=== PATIENT | male | born 1955 | race Caucasian/White ===

== ENCOUNTER → 2017-07-02 | Outpatient (CLI) | payer BC ==
--- NOTE | 2017-07-02 20:07 | PN ---
PROGRESS NOTE 61-year-old male patient, known history obstructive sleep apnea coming for a followup. The patient has been maintained on a BiPAP at a pressure of 13/9 cm of water. He is utilizing an older generation ResMed med unit and he has not been interested in upgrading his BiPAP machine. In fact, he has not been able to use his BiPAP knowing that he has not been able to get the right mask interface. He has been using the Marie FX mask. However he feels that the seal has not been great and the patient has been feeling uncomfortable. Recently he has been feeling more drowsy and sleepy and he is interested in going back on using his BiPAP and based on that he is coming in to find new mask interface. He is sleeping a good 6 hours. He is feeling tired and sleepy and current [place] score of 14. He is post UPPP. He is known to have obstructive sleep apnea that has been diagnosed with [facility] many years back. UPPP failed to eliminate obstructive sleep apnea and currently he has a BiPAP machine. He has other multiple medical problems, including peripheral neuropathy, Tourette's syndrome, hypertension and coronary artery disease and hyperlipidemia. MEDICATIONS: Include Zocor and metoprolol, lisinopril and aspirin. ALLERGIES: ALLERGIES ARE THE KLONOPIN AND LEVAQUIN. SOCIAL HISTORY: Nonsmoker. No alcohol. No IV drugs. REVIEW OF SYSTEMS: 12-point review of system was done. No interval history for any weight gain. He has no altered mentation. He has been a nose breather. No sinus pain. No facial pain or tenderness. No chronic rhinitis or any facial injuries. No cough or sputum production. No heartburn. No nausea, vomiting. No swelling in lower extremities. He has chronic sensory neuropathy in lower extremities bilaterally. Free of any angina. PHYSICAL EXAMINATION: BP is 130/81, pulse 68, respirations 16, temperature 98.1. Saturation 96% on room air. Weight is 244, height 5 feet 11, [place] Score is 14, BMI 34.0. General appearance is calm comfortable in no acute distress. Head is atraumatic, normocephalic. NECK: Supple. There is no JVD. No goiter or neck masses. The patient is post UPPP and the soft palate has been resected surgically. He also has absent tonsils. LUNGS: Clear to auscultation. HEART: Sounds regular rhythm. Normal S1, S2. No S3, S4. No murmurs. ABDOMEN: Soft, nontender. EXTREMITIES: No edema. No cyanosis or clubbing. NEUROLOGIC: Alert and oriented x3. There is no focal neurological deficit. Psych: Negative for anxiety or depression. IMPRESSION: 1. Obstructive sleep apnea. Currently on BiPAP at a pressure of 14/9. 2. Chronic hypersomnia [place] Score is 14. 3. Previous UPPP for obstructive sleep apnea. 4. Hyperlipidemia. 5. Hypertension. 6. Coronary artery disease. 7. Peripheral sensory neuropathy. 8. Tourette's syndrome. PLAN: The patient is not interested in undergoing a BiPAP titration for now. He is okay with using his older BiPAP unit which is an RO BiPAP ResMed unit which he owned for more than 10 years. We will offer him an AirFit P10 small-sized nose pillows. I checked his mask fit and the seal which turned out to be good. The appropriate prescription was given. He will utilize his current BiPAP machine and he may be interested in a BiPAP titration at a later stage. He will let me know accordingly. MMODL / IJN: [id number] /
== END | disposition home or self-care (01) ==
LOC: SLEEP 14:33
PROVIDERS: ATTEND Internal Medicine Critical Care Medicine
DX: G47.33 Obstructive sleep apnea (adult) (pediatric) (principal); F95.2 Tourette's disorder; G60.8 Other hereditary and idiopathic neuropathies; E78.5 Hyperlipidemia, unspecified; I10 Essential (primary) hypertension; I25.10 Atherosclerotic heart disease of native coronary artery without angina pectoris; Z79.82 Long term (current) use of aspirin; Z79.899 Other long term (current) drug therapy; Z88.0 Allergy status to penicillin; Z88.1 Allergy status to other antibiotic agents; Z99.89 Dependence on other enabling machines and devices

== ENCOUNTER → 2017-09-10 | Outpatient (CLI) | payer BC ==
[2017-09-10 10:08] LABS: Basophils # (A) 0.1 k/uL (0-0.2); Basophils % (A) 1 %; Eosinophils # (A) 0.4 k/uL (0-0.7); Eosinophils % (A) 7 %; HCT 39.5 % (39.0-53.0); HGB 13.6 gm/dL (13.0-17.5); Lymphocytes # (A) 1.4 k/uL (1.0-4.8); Lymphocytes % (A) 26 %; MCH 30.8 pg (25.0-35.0); MCHC 34.4 g/dL (31.0-37.0); MCV 89.7 fL (80.0-100.0); Mean Platelet Volume 6.5; Monocytes # (A) 0.4 k/uL (0-1.0); Monocytes % (A) 7 %; Neutrophils # (A) 3.2 k/uL (1.3-7.7); Neutrophils % (A) 58 %; Platelet Count 225 k/uL (150-450); RBC 4.41 m/uL (4.30-5.90); WBC 5.6 k/uL (3.8-10.6)
[2017-09-10 10:30] LABS: ALT 42 U/L (21-72); AST 33 U/L (17-59); Albumin 4.5 g/dL (3.5-5.0); Alkaline Phosphatase 44 U/L (38-126); Anion Gap 12 mmol/L; Blood Urea Nitrogen 12 mg/dL (9-20); Calcium 9.4 mg/dL (8.4-10.2); Carbon Dioxide 29 mmol/L (22-30); Chloride 101 mmol/L (98-107); Cholesterol 113 mg/dL (<200); Glucose 92 mg/dL (74-99); HDL Cholesterol 38 mg/dL (40-60); LDL Cholesterol,Calculated 46 mg/dL (0-99); Potassium 4.5 mmol/L (3.5-5.1); Sodium 142 mmol/L (137-145); Total Bilirubin 0.6 mg/dL (0.2-1.3); Total Protein 6.8 g/dL (6.3-8.2); Triglycerides 146 mg/dL (<150)
[2017-09-10 10:34] LABS: Appearance,Urine Clear (Clear); Bilirubin,Urine Negative (Negative); Blood,Urine Negative (Negative); Color,Urine Light Yellow; Glucose,Urine (UA) Negative (Negative); Ketones,Urine Negative (Negative); Leukocyte Esterase,Urine Negative (Negative); Nitrite,Urine Negative (Negative); Protein,Urine Negative (Negative); Specific Gravity,Urine 1.004 (1.001-1.035); Urobilinogen,Urine <2.0 mg/dL (<2.0)
[2017-09-10 10:57] LABS: Prostate Specific Antigen 0.77 ng/mL (0.00-4.00)
[2017-09-10 16:07] LABS: Vitamin D 25 Hydroxy 16.8 ng/mL (30.0-100.0)
[2017-09-10 17:10] LABS: Hepatitis C IgG Antibody Non-Reactive (Non-Reactive)
== END | disposition home or self-care (01) ==
LOC: LABWHC1 09:16
PROVIDERS: ATTEND Internal Medicine
DX: I10 Essential (primary) hypertension (principal); E55.9 Vitamin D deficiency, unspecified; R53.81 Other malaise; Z13.9 Encounter for screening, unspecified; Z12.5 Encounter for screening for malignant neoplasm of prostate
CPT/HCPCS: 36415; 80053; 80061; 81003; 82306; 82607; 84153; 84443; 85025; 86803

== ENCOUNTER → 2017-10-26 | Outpatient (CLI) | payer BC ==
--- NOTE | 2017-10-27 14:30 | MR ---
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 TECHNIQUE: Multiplanar, multiecho imaging on a 3.0 [place] magnet is performed through the brain. Stud y is performed within 24 hours of arrival to the hospital. The craniovertebral junction is normal. The pituitary is normal. Diffusion-weighted imaging is performed. No abnormal hyperintensity is present to suggest an acute i ntracranial infarct or acute ischemic change. There are a few scattered punctate subcortical and deep white matter changes not out of proportion pa tient age. These are nonspecific but could be related to chronic white matter ischemic changes. Ventricles and sulci are appropriate for the patient age. Mucosal thickening is through the ethmoid air cells and frontal sinuses. Correlate for acute sinusiti s. IMPRESSIONS: 1. Few nonspecific right side white matter changes. These are increasing from 2009 comparison.
== END | disposition home or self-care (01) ==
LOC: RADMRIMAIN 09:22
PROVIDERS: ATTEND Psychiatry & Neurology Neurology
DX: R90.82 White matter disease, unspecified (principal)
CPT/HCPCS: 70551

== ENCOUNTER → 2018-12-08 | Outpatient (CLI) | payer BC ==
--- NOTE | 2018-12-08 08:50 | CT ---
EXAMINATION TYPE: CT sinus wo con DATE OF EXAM: 12/08/2018 COMPARISON: MRI brain October 26, 2017. HISTORY: Dizziness and headaches per patient. Chronic sinusitis prior. CT DLP: 556.90 mGycm. Automated Exposure Control for Dose Reduction was Utilized. TECHNIQUE: CT scan of the sinuses is performed without contrast, axial images are obtained, coronal r eformatted images are also reviewed. FINDINGS: There is moderate to severe mucosal thickening and patchy opacification throughout the ethm oid sinuses bilaterally. There is mild to moderate mucosal thickening involving the sphenoid sinuses bilaterally. There is moderate mucosal thickening inferior aspect bilateral frontal sinuses. The ost iomeatal complex is patent bilaterally on the coronal images. Visualized portion of mastoid air cells show no abnormal opacification. Patchy soft tissue density bi lateral left auditory canals is felt to reflect cerumen. The globes are intact bilaterally. Visualiz ed portion of brain parenchyma shows mild to moderate diffuse age related cerebral atrophy. IMPRESSION: Acute on chronic ethmoid sinus disease. Additional chronic paranasal sinus disease bilate rally as detailed above.
== END | disposition home or self-care (01) ==
LOC: RADCTMAIN 08:15
PROVIDERS: ATTEND Otolaryngology
DX: J32.2 Chronic ethmoidal sinusitis (principal)
CPT/HCPCS: 70486

== ENCOUNTER → 2018-12-24 | Outpatient (CLI) | payer BC ==
--- NOTE | 2018-12-24 20:35 | PN ---
PROGRESS NOTE DATE OF SERVICE: 12/24/2018 63-year-old gentleman who has [facility] for treatment of obstructive sleep apnea-hypopnea syndrome. Previously, patient was treated with Auto Serve ventilator and BiPAP. Recently he is on treatment with CPAP. His BiPAP Auto Serve ventilator unit is very old, but patient continued to use his equipment every night for the whole night. Last sleep study that he had in 2014 and since that time, it was recommended to use BiPAP. [place] Sleepiness Scale today is 10. MEDICATIONS: Metoprolol, baby aspirin, lisinopril, simvastatin, Singulair, Wellbutrin. PHYSICAL EXAM: Patient in no distress. BP 157/81, HR 63, RR 16, height 5 feet 11 inches, weight 242.8. Body mass index 33.8, temperature 98.4, oxygen saturation at room air 95% on 2 L. Oropharynx low position of soft palate. Mallampati 4. Wide neck is 17-3/4 inches in circumference. Neck Supple, no JVD. Thyroid is not palpable. LUNGS Clear to percussion and to auscultation. Good air exchange. No wheezing or rhonchi. HEART S1, S2 regular. No murmurs, gallops, or rubs. ABDOMEN: Slightly obese. Soft and nontender. Bowel sounds are present. No organomegaly appreciated. EXTREMITIES No clubbing or cyanosis. 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 Cranial nerves 2 to 7 intact. There is no fasciculation or atrophy. noted. No focal deficits observed. IMPRESSION: 1. Obstructive sleep apnea-hypopnea syndrome. The patient continued to use his CPAP equipment every night for the whole night. BIPAP equipment is old. 2. Hypertension. 3. Status post uvulopalatopharyngoplasty. 4. Hyperlipidemia. 5. Coronary artery disease. 6. Peripheral neuropathy. 7. History of Tourette's syndrome. PLAN: 1. Prescription for new BiPAP unit with a pressure of 13/9 cm of water. 2. Patient should continue to use his BiPAP equipment every night for the whole night. 3. Watching and losing weight. 4. Sleep hygiene with regular time in bed for at least 7.5 to 8 hours. 5. No driving if feeling sleepiness. 6. Follow-up visit in 1 month after patient will get new BiPAP unit. Sincerely, Jae Asencio, MD, PhD, FAASM Diplomat of [place] [employer] [place] [employer] [facility] Administrator of [facility] [place] MMALBERTO / PRAVEENA: [id number] /
== END ==
LOC: SLEEP 15:53
PROVIDERS: ATTEND Internal Medicine
DX: G47.33 Obstructive sleep apnea (adult) (pediatric) (principal); I10 Essential (primary) hypertension; E78.5 Hyperlipidemia, unspecified; I25.10 Atherosclerotic heart disease of native coronary artery without angina pectoris; G62.9 Polyneuropathy, unspecified; Z86.69 Personal history of other diseases of the nervous system and sense organs; Z99.89 Dependence on other enabling machines and devices; Z98.890 Other specified postprocedural states; Z79.899 Other long term (current) drug therapy; Z79.82 Long term (current) use of aspirin

== ENCOUNTER 2019-02-11 10:45 | Day surgery (SDC) | payer BC ==
[2019-02-10 10:08] VITALS: BMI 32.8
--- NOTE | 2019-02-11 08:33 | P.GSHP ---
History of Present Illness H&P Date: 02/11/19 CHIEF COMPLAINT: Colon screen HISTORY OF PRESENT ILLNESS: The patient is a 63-year-old male who presents for colon screen. Lower endoscopy was offered for further evaluation and management. PAST MEDICAL HISTORY: Please see list. PAST SURGICAL HISTORY: Please see list. MEDICATIONS: Please see list. ALLERGIES: Please see list. SOCIAL HISTORY: No illicit drug use FAMILY HISTORY: No reports of Crohn disease or ulcerative colitis. REVIEW OF ORGAN SYSTEMS: CONSTITUTIONAL: No reports of fevers or chills. PHYSICAL EXAM: VITAL SIGNS: Stable GENERAL: Well-developed pleasant in no acute distress. HEENT: No scleral icterus. Extraocular movements grossly intact. Moist buccal mucosa. NECK: Supple without lymphadenopathy. CHEST: Unlabored respirations. Equal bilateral excursions. CARDIOVASCULAR: Regular rate and rhythm. Distal 2+ pulses. ABDOMEN: Soft, nontender, nondistended. MUSCULOSKELETAL: No clubbing, cyanosis, or edema. ASSESSMENT: 1. Colon screen. PLAN: 1. 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", constipation, rectal pain with occ bleeding with bowel movements- change in bowel movements, recent "prostate infection" Last Myocardial Infarction Date:: unknown History of Any Multi-Drug Resistant Organisms: None Reported Past Surgical History: Heart Catheterization With Stent, Orthopedic Surgery, Tonsillectomy Additional Past Surgical History / Comment(s): ORAL SURGERY, SINUS SURGERY, heart stents x 5, reconstruction surgery rt hand x 6, uvuloplasty, hemorrhoidectomy Past Anesthesia/Blood Transfusion Reactions: Postoperative Nausea & Vomiting (PONV) Additional Past Anesthesia/Blood Transfusion Reaction / Comment(s): could not walk for a couple hours after surgery with one surgery in 1990- (came in for surgery running a fever) Date of Last Stent Placement:: 08-03-13 Smoking Status: Never smoker - Past Family History Mother Family Medical History: Cancer Additional Family Medical History / Comment(s): colon and breast CA Medications and Allergies Home Medications Medication Instructions Recorded Confirmed Type Simvastatin [Zocor] 40 mg PO HS #60 tab 08/04/13 02/10/19 Rx Lisinopril [Zestril] 2.5 mg PO HS 12/01/18 02/10/19 History Metoprolol Tartrate [Lopressor] 12.5 mg PO QAM 12/01/18 02/10/19 History buPROPion HCL [buPROPion HCL SR] 150 mg PO BID 12/01/18 02/10/19 History Albuterol Inhaler [Ventolin Hfa 1 - 2 puff INHALATION BID PRN 02/10/19 02/10/19 History Inhaler] Aspirin [Adult Low Dose Aspirin EC] 162 mg PO DAILY 02/10/19 02/10/19 History Fluticasone/Vilanterol [Breo 1 inhalation INHALATION QAM 02/10/19 02/10/19 History Ellipta 200-25 Mcg INH] Montelukast Sodium [Singulair] 10 mg PO HS 02/10/19 02/10/19 History Allergies Allergy/AdvReac Type Severity Reaction Status Date / Time clonidine Allergy "ALMOST Verified 02/10/19 09:49 STOPPED MY HEART" levofloxacin [From Levaquin] Allergy SEIZURE Verified 02/10/19 09:49
[~2019-02-11 10:45] MED LIST: LIDOCAINE 1% 20 ML VIAL (10MG/ML) FOR IV START INTRADERMA PRN
[2019-02-11 11:54] VITALS: RESP 16; TEMP 97.9
[2019-02-11] MEDS: LACTATED RINGERS 1,000 ML IV SCH ×2 (11:54→12:28)
[2019-02-11] MEDS ORDERED: PROPOFOL 10 MG/ML 20 ML VIAL IV ONE (12:28)
--- NOTE | 2019-02-11 13:08 | P.PCN ---
Date of Procedure: 02/11/19 Description of Procedure: PREOPERATIVE DIAGNOSIS: Personal history of colon polyps. Family history of colon cancer, parents Colonoscopy screening POSTOPERATIVE DIAGNOSIS: Personal history of colon polyps. Family history of colon cancer, parents Colonoscopy screening Mid transverse colon adenoma OPERATION: Colonoscopy to the ileocecal valve and appendiceal orifice. Colonoscopy with multiple cold forceps biopsies. SURGEON: Kayla Greene MD. ANESTHESIA: MAC. INDICATIONS: The patient is a 63-year-old female who presents for colonoscopy screening. Last colonoscopy 5 years ago. Benefits and risks were described and informed consent was obtained. DESCRIPTION OF PROCEDURE: The patient had undergone Suprep. He had been brought into the operating room and laid in the left lateral decubitus position. After adequate intravenous sedation, the rectum was examined with 2% lidocaine jelly. No external hemorrhoids were encountered. The rectal tone was within normal limits. No lesions were palpated in the rectal vault. An Olympus colonoscope was advanced until the ileocecal valve and appendiceal orifice were clearly viewed. The prep was fair with visualization of the mucosal folds. The scope was removed with visualization of each mucosal fold. No scattered diverticulosis was encountere d. Mid transverse colon polyp was treated with snare polypectomy. No evidence of focal colitis was found. Retroflexion of the scope demonstrated grade 1 internal hemorrhoids without active bleeding or inflammation. The colon was desufflated. The patient had tolerated the procedure well. Withdrawal time was over 6 minutes. FINDINGS: Aronchick preparation quality scale 1 (1-5) Internal hemorrhoids, grade 1 No external hemorrhoids No arteriovenous malformations Highly redundant sigmoid colon No scattered diverticulosis Removal of 1 polyp: - Snare polypectomy mid transverse colon, 5 mm tubulovillous adenoma polyp. No focal colitis. RECOMMENDATIONS: Repeat colonoscopy 3 years, 2021 for high risk family and personal history Plan - Discharge Summary Discharge Rx Participant: No New Discharge Prescriptions: No Action Simvastatin [Zocor] 40 mg PO HS #60 tab Metoprolol Tartrate [Lopressor] 12.5 mg PO QAM Lisinopril [Zestril] 2.5 mg PO HS buPROPion HCL [buPROPion HCL SR] 150 mg PO BID Albuterol Inhaler [Ventolin Hfa Inhaler] 1 - 2 puff INHALATION BID PRN PRN Reason: sob Aspirin [Adult Low Dose Aspirin EC] 162 mg PO DAILY Fluticasone/Vilanterol [Breo Ellipta 200-25 Mcg INH] 1 inhalation INHALATION QAM Montelukast Sodium [Singulair] 10 mg PO HS Discharge Medication List Simvastatin [Zocor] 40 mg PO HS #60 tab 08/04/13 [Rx] Lisinopril [Zestril] 2.5 mg PO HS 12/01/18 [History] Metoprolol Tartrate [Lopressor] 12.5 mg PO QAM 12/01/18 [History] buPROPion HCL [buPROPion HCL SR] 150 mg PO BID 12/01/18 [History] Albuterol Inhaler [Ventolin Hfa Inhaler] 1 - 2 puff INHALATION BID PRN 02/10/19 [History] Aspirin [Adult Low Dose Aspirin EC] 162 mg PO DAILY 02/10/19 [History] Fluticasone/Vilanterol [Breo Ellipta 200-25 Mcg INH] 1 inhalation INHALATION QAM 02/10/19 [History] Montelukast Sodium [Singulair] 10 mg PO HS 02/10/19 [History] Follow up Appointment(s)/Referral(s): Kayla Greene MD [STAFF PHYSICIAN] - As Needed Patient Instructions/Handouts: *Surgery [facility] - (Anesthesia) Endoscopy Discharge Instructions, Colorectal Polyps (DC), Colonoscopy (DC) Discharge Disposition: HOME SELF-CARE
[2019-02-11 13:10] VITALS: BP 101/69; PULSE 50
== END 2019-02-11 13:30 | disposition home or self-care (01) ==
LOC: ORWHC2ENDO 10:45
PROVIDERS: ATTEND Surgery Plastic and Reconstructive Surgery
DX: Z12.11 Encounter for screening for malignant neoplasm of colon (principal); K63.5 Polyp of colon; Q43.8 Other specified congenital malformations of intestine; K64.0 First degree hemorrhoids; Z86.010 Personal history of colon polyps; Z80.0 Family history of malignant neoplasm of digestive organs; J45.909 Unspecified asthma, uncomplicated; K21.9 Gastro-esophageal reflux disease without esophagitis; E78.5 Hyperlipidemia, unspecified; N41.9 Inflammatory disease of prostate, unspecified; I10 Essential (primary) hypertension; I25.2 Old myocardial infarction; M19.90 Unspecified osteoarthritis, unspecified site; Z87.01 Personal history of pneumonia (recurrent); G47.33 Obstructive sleep apnea (adult) (pediatric); Z99.89 Dependence on other enabling machines and devices; G62.9 Polyneuropathy, unspecified; R27.8 Other lack of coordination; F95.2 Tourette's disorder; Z86.73 Personal history of transient ischemic attack (TIA), and cerebral infarction without residual deficits; R00.2 Palpitations; I25.10 Atherosclerotic heart disease of native coronary artery without angina pectoris; Z95.5 Presence of coronary angioplasty implant and graft; Z80.3 Family history of malignant neoplasm of breast; Z79.82 Long term (current) use of aspirin; Z79.51 Long term (current) use of inhaled steroids; Z79.899 Other long term (current) drug therapy; Z88.1 Allergy status to other antibiotic agents; Z88.8 Allergy status to other drugs, medicaments and biological substances
CPT/HCPCS: 88305; 45385; J2704

== ENCOUNTER 2020-12-01 05:58 | Day surgery (SDC) | payer BC ==
[2020-11-23 16:22] VITALS: BMI 31.9
--- NOTE | 2020-11-30 19:38 | HP ---
HISTORY AND PHYSICAL DATE OF SURGERY: 12/01/2020 Barrington De Dios is a 65-year-old gentleman seen with progressive left shoulder pain. We discussed options for treatment. He elected to proceed with arthroscopy. Consent was obtained. Clearance was provided by Dr. Nolen. PAST MEDICAL HISTORY: Hypertension, hyperlipidemia, gastroesophageal reflux disease. PAST SURGICAL HISTORY: Hand surgery, sinus surgery. DAILY MEDICATIONS: Aspirin, lisinopril, metoprolol, omeprazole, simvastatin. ALLERGIES: LEVAQUIN AND CLONIDINE. SOCIAL HISTORY: He denies tobacco use. PHYSICAL EVALUATION OF THE LEFT SHOULDER: Flexion 100, abduction 90. External rotation is 10 with pain and weakness. Tenderness along the anterolateral acromion and acromioclavicular joint as well as rotator cuff insertion site. Impingement is positive at 90 degrees. Drop-arm sign is positive. Cross-body adduction sign is positive. Distal neurovascular exam is intact. RADIOGRAPHS: Radiographs of the left shoulder revealed a type 2 acromion and evidence for acromioclavicular joint osteoarthritis and cystic changes of the tuberosity. An MRI of the left shoulder revealed impingement, acromioclavicular joint osteoarthritis as well as some glenohumeral joint osteoarthritis. IMPRESSION: 1. Left shoulder impingement with possible rotator cuff tear. 2. Left shoulder acromioclavicular joint osteoarthritis. 3. Left shoulder glenohumeral joint osteoarthritis. 4. Hypertension. 5. Hyperlipidemia. 6. Gastroesophageal reflux disease. PLAN: Left shoulder arthroscopy with subacromial decompression, arthroscopic Shirley procedure, possible rotator cuff repair and debridement. MMODL / IJN: [id number] /
[~2020-12-01 05:58] MED LIST changes: +DEXAMETHASONE SOD PHOSPHATE 4 MG/ML 1 ML VIAL IV ONE; +LACTATED RINGERS 1,000 ML IV SCH; -LIDOCAINE 1% 20 ML VIAL (10MG/ML) FOR IV START INTRADERMA PRN; +MIDAZOLAM 2 MG/2 ML VIAL IV PRN; +ONDANSETRON 4 MG/2 ML VIAL IVP ONE
[2020-12-01] MEDS ORDERED: LIDOCAINE 1% (10MG/ML) FOR IV START INTRADERMA ONE (06:30)
[2020-12-01 06:56] VITALS: RESP 16
[2020-12-01] MEDS ORDERED: HYDROmorphone 0.5 MG/0.5 ML SYRINGE IVP PRN (07:00)
[2020-12-01] MEDS ORDERED: fentaNYL (PF) 50 MCG/ML 2 ML AMP ONE (07:25)
[2020-12-01] MEDS ORDERED: ROCURONIUM 10 MG/ML (5 ML VIAL) IV ONE (07:25)
[2020-12-01] MEDS ORDERED: ROPIVACAINE 5 MG/ML 30 ML VIAL ONE (07:25)
[2020-12-01] MEDS ORDERED: DEXAMETHASONE SOD PHOSPHATE 4 MG/ML 1 ML VIAL ONE (07:25)
[2020-12-01] MEDS ORDERED: LIDOCAINE 1% INJ 10MG/ML (20 ML MDV) ONE (07:25)
[2020-12-01] MEDS ORDERED: GLYCOPYRROLATE 0.2 MG/ML 2 ML VIAL ONE (07:25)
[2020-12-01] MEDS ORDERED: SUCCINYLCHOLINE CHLORIDE 100 MG/5 ML SYR IV ONE (07:25)
[2020-12-01] MEDS ORDERED: NEOSTIGMINE 1 MG/ML 10 ML VIAL ONE (07:25)
[2020-12-01] MEDS ORDERED: PROPOFOL 10 MG/ML 20 ML VIAL IV ONE (07:25)
--- NOTE | 2020-12-01 09:03 | P.OP ---
Date of Procedure: 12/01/20 Preoperative Diagnosis: Left shoulder impingement Postoperative Diagnosis: 1. Left shoulder rotator cuff tear 2. Left shoulder impingement 3. Left shoulder acromioclavicular joint osteoarthritis 4. Left shoulder partial long head biceps tendon tear 5. 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 Left shoulder loose bodies 2 Procedure(s) Performed: 1. Left shoulder arthroscopic rotator cuff repair 2. Left shoulder arthroscopic subacromial decompression 3. Left shoulder arthroscopic Shirley procedure 4. Left shoulder arthroscopic biceps tenotomy 5. Left shoulder arthroscopic chondroplasty humeral head 6. Left shoulder removal loose bodies 2 Implants: 15.5 Arthrex swivel lock anchor Anesthesia: GETA, regional (Interscalene block) Surgeon: Clinton Ledezma Dinkey Operator Slag #1: Anthony Shay Estimated Blood Loss (ml): 11 Pathology: none sent Condition: stable Disposition: PACU Indications for Procedure: 65-year-old patient seen with progressive left shoulder pain. After having treatment options discussed, he elected to proceed with arthroscopy. Operative Findings: See description of procedure Description of Procedure: Patient underwent an interscalene block by department of anesthesia. The patient was then taken to the operative suite. The patient underwent a general anesthetic by the department of anesthesia. The patient was placed into a lateral position and secured. There was appropriate padding of the bony prominence. Left shoulder was then prepped and draped in normal sterile orthopedic fashion. We placed the extremity in 10 pounds of longitudinal traction. A posterior incision was now made for a posterior working portal site. The trocar and cannula were inserted into the glenohumeral joint. Arthroscopy was initiated. Spinal needle was now inserted anteriorly, to ascertain the anterior working portal site. An incision was now made in that area, a trocar was inserted followed by a probe. There was partial tearing and hyperemia long head biceps tendon. There was an area of grade 2/3 chondral malacia humeral head with osteochondral flap tears. There was some superficial fraying of the superior and anterior labrum. There were grade 2, she changes glenoid fossa anteriorly. I noted to loose bodies intra-articular. At this point I removed those with loose body pituitaries without difficulty. I now performed an arthroscopic biceps tenotomy. I now performed a chondroplasty of the humeral head getting down to stable osteochondral tissue. I now debrided out the superficial fraying of the labrum. The residual osteochondral surface was probed and found to be stable. I again noted grade 2/3 chondromalacia there. The residual labrum was stable. At this point instruments removed from glenohumeral joint. Utilizing the posterior working portal site, the trocar and cannula were inserted into the subacromial space. Arthroscopy initiated. I made an incision 2 fingerbreadths lateral to the acromion. I introduced my trocar followed by my ArthroCare ablator. I now began ablating thick subacromial bursal tissue, which exposed the undersurface of the anterior acromion. There was diminished subacromial space. There was a very prominent anterior acromion. A motorized bur was introduced and a subacromial decompression was performed. I also excised some osteophytes off the inferior aspect of the distal clavicle. The AC joint was visualized and noted to be fairly arthritic. The motorized bur was introduced in the anterior portal site and a Shirley procedure was performed without difficulty, decompressing the AC joint nicely. I turned my attention to the rotator cuff. There was significant partial tearing distal supraspinatus. Upon probing the area and noted a full-thickness perforation. I debrided the margins getting down to stable tendon tissue. I abraded the footprint with a motorized bur. With the assistance of Ronaldo WILDE I passed 2 everted mattress sutures through good bites of rotator cuff tendon. I now punched along the footprint for insertion of an anchor. All 4 limbs of suture were passed through the eyelet of a 5.5 Arthrex swivel lock anchor. I placed the pre-punch hole. I felt that in position while Ronaldo WILDE tension on the sutures and deployed anchor with good fixation noted. All residual suture limbs were now clipped. We had good compression of the tendon along the entire footprint. Instruments now removed from the portal sites. All portal sites were approximated with nylon suture. Sterile dressings were applied followed by a shoulder sling. Anthony WILDE assisted in this case. The patient was awakened, transferred to a bed, and taken to recovery in stable condition.
[2020-12-01] MEDS ORDERED: ONDANSETRON 4 MG/2 ML VIAL ONE (09:23)
[2020-12-01 09:27] VITALS: TEMP 97.3
[2020-12-01] MEDS ORDERED: ONDANSETRON 4 MG/2 ML VIAL IVP ONE (09:28)
[2020-12-01] MEDS ORDERED: LACTATED RINGERS 1,000 ML IV ONE (09:32)
[2020-12-01] MEDS ORDERED: HYDROcodone/APAP 5-325MG 1 EACH TAB ONE (10:21)
[2020-12-01] MEDS ORDERED: HYDROcodone/APAP 5-325MG 1 EACH TAB PO ONE (10:25)
[2020-12-01 10:57] VITALS: BP 146/88; PULSE 58
--- NOTE | 2020-12-02 07:23 | P.ANPRN ---
Procedure Note - Anesthesia - Nerve Block Performed Left Interscalene Single Time Out Performed: Yes Date of Procedure: 12/01/20 Procedure Start Time: 06:48 Procedure Stop Time: 06:53 Location of Patient: PreOp Indication: Acute Post-Operative Pain, Requested by Surgeon Sedation Type: Sedate with meaningful contact maintained Preparation: Sterile Prep Position: Supine Needle Types: Pajunk Needle Gauge: 21 Ultrasound used to visualize needle placement: Yes Ultrasound used to observe medication spread: Yes Blood Aspirated: No Pain Paresthesia on Injection Noted: No Resistance on Injection: Normal Image Stored and Saved: Yes Events: Uneventful and Well Tolerated (rop[i .5% 25 cc plus dexamethasone 4mg)
== END 2020-12-01 11:22 | disposition home or self-care (01) ==
LOC: OR 05:58
PROVIDERS: ATTEND Orthopaedic Surgery
DX: M75.102 Unspecified rotator cuff tear or rupture of left shoulder, not specified as traumatic (principal); M19.012 Primary osteoarthritis, left shoulder; E78.5 Hyperlipidemia, unspecified; I10 Essential (primary) hypertension; K21.9 Gastro-esophageal reflux disease without esophagitis; Z88.1 Allergy status to other antibiotic agents
CPT/HCPCS: 29827; 29824; 29826; 29828; 64415; 76942; C1713; J2250; J1100; J2710; J0690; J2405; J2001; J3010; J2795; J0330; J2704

== ENCOUNTER → 2021-04-08 | Outpatient (CLI) | payer BC ==
[2021-04-08 18:37] LABS: HCT 39.2 % (39.6-50.0); HGB 13.6 g/dL (13.0-17.0); MCH 31.3 pg (27.0-32.0); MCHC 34.7 g/dL (32.0-37.0); MCV 90.3 fL (80.0-97.0); Platelet Count 268 X 10*3/uL (140-440); RBC 4.34 X 10*6/uL (4.40-5.60); RDW 11.8 % (11.5-14.5); WBC 5.75 X 10*3/uL (4.50-10.00)
[2021-04-08 23:54] LABS: ALT 28 U/L (10-49); AST 25 U/L (14-35); African American GFR (CKD) 111.6 (60.0-200.0); Albumin 4.8 g/dL (3.8-4.9); Albumin/Globulin Ratio 2.58 (1.60-3.17); Alkaline Phosphatase 70 U/L (41-126); BUN/Creat Ratio 15.85 Ratio (12.00-20.00); Blood Urea Nitrogen 12.3 mg/dL (9.0-27.0); Calcium 9.5 mg/dL (8.7-10.3); Carbon Dioxide 21.5 mmol/L (20.0-27.5); Chloride 96 mmol/L (96-109); Chol/HDL Ratio 2.47 Ratio; Globulin 1.9 g/dL (1.6-3.3); Glucose 95 mg/dL (70-110); LDL Cholesterol,Calculated 51.9 mg/dL (0.0-131.0); Non-African American GFR(CKD) 96.3 (60.0-200.0); Potassium 4.1 mmol/L (3.5-5.5); Sodium 133 mmol/L (135-145); Total Protein 6.7 g/dL (6.2-8.2); VLDL Calculation 15.26 mg/dL (5.00-40.00)
== END | disposition home or self-care (01) ==
LOC: LABWHC1 10:09
PROVIDERS: ATTEND Family Medicine
DX: Z00.01 Encounter for general adult medical examination with abnormal findings (principal); Z12.5 Encounter for screening for malignant neoplasm of prostate
CPT/HCPCS: 80061; 80053; 85027; 36415; G0103

== ENCOUNTER 2022-01-15 10:35 | Emergency (ER) | payer BC ==
[2022-01-15 11:06] LABS: Basophils # (A) 0.1 k/uL (0-0.2); Basophils % (A) 1 %; Eosinophils # (A) 0.2 k/uL (0-0.7); Eosinophils % (A) 2 %; HCT 40.1 % (39.0-53.0); HGB 14.3 gm/dL (13.0-17.5); Lymphocytes # (A) 1.7 k/uL (1.0-4.8); Lymphocytes % (A) 15 %; MCH 32.3 pg (25.0-35.0); MCHC 35.8 g/dL (31.0-37.0); MCV 90.2 fL (80.0-100.0); Mean Platelet Volume 7.2; Monocytes # (A) 0.7 k/uL (0-1.0); Monocytes % (A) 6 %; Neutrophils # (A) 8.5 k/uL (1.3-7.7); Neutrophils % (A) 76 %; Platelet Count 259 k/uL (150-450); RBC 4.44 m/uL (4.30-5.90); RDW 11.9 % (11.5-15.5); WBC 11.3 k/uL (3.8-10.6)
[2022-01-15 11:18] LABS: ALT 28 U/L (4-49); AST 28 U/L (17-59); African American GFR (CKD) >90 (>60 ml/min/1.73 sqM); Albumin 4.5 g/dL (3.5-5.0); Alkaline Phosphatase 70 U/L (38-126); Anion Gap 11 mmol/L; Blood Urea Nitrogen 8 mg/dL (9-20); Calcium 8.7 mg/dL (8.4-10.2); Carbon Dioxide 24 mmol/L (22-30); Chloride 101 mmol/L (98-107); Glucose 91 mg/dL (74-99); Non-African American GFR(CKD) >90 (>60 ml/min/1.73 sqM); Potassium 3.8 mmol/L (3.5-5.1); Sodium 136 mmol/L (137-145); Total Bilirubin 1.1 mg/dL (0.2-1.3); Total Protein 6.6 g/dL (6.3-8.2)
[2022-01-15 11:20] LABS: Partial Thromboplastin Time 22.8 sec (22.0-30.0); Prothrombin Time 10.7 sec (9.0-12.0)
--- NOTE | 2022-01-15 12:31 | ED ---
General Adult HPI - General Chief complaint: GI Bleed Stated complaint: Blood in stool Time Seen by Provider: 01/15/22 12:17 Source: patient, RN notes reviewed, old records reviewed Mode of arrival: ambulatory Limitations: no limitations - History of Present Illness Initial comments: 66-year-old male presenting for evaluation of rectal bleeding. Patient has had multiple episodes over the past 48 hours of bright red rectal bleeding with several clots. He states he's scheduled for colonoscopy in about a month. The patient is currently taking too 81 mg aspirin daily, no other antiplatelet or anticoagulation. He has had some crampy abdominal pain. He also states he has lost about 20 pounds and has had early satiety. - Related Data Home Medications Medication Instructions Recorded Confirmed lisinopriL [Zestril] 5 mg PO HS 12/01/18 01/15/22 Albuterol Inhaler [Ventolin Hfa 1 - 2 puff INHALATION RT-Q6H PRN 02/10/19 01/15/22 Inhaler] Aspirin [Adult Low Dose Aspirin EC] 162 mg PO DAILY 02/10/19 01/15/22 Montelukast Sodium [Singulair] 10 mg PO HS 02/10/19 01/15/22 Multivit-Min/FA/Lycopen/Lutein 1 tab PO DAILY 11/23/20 01/15/22 [Centrum Silver Tablet] FLUoxetine HCL 20 mg PO DAILY 01/15/22 01/15/22 Glucos Sul 2Kcl/MSM/Chond/C/Mn 1 cap PO DAILY 01/15/22 01/15/22 [Glucosamine Chondroitin Cap] Metoprolol Succinate [Metoprolol 25 mg PO DAILY 01/15/22 01/15/22 Succinate ER] Zinc Gluconate [Zinc] 50 mg PO DAILY 01/15/22 01/15/22 buPROPion XL [Wellbutrin XL] 300 mg PO DAILY 01/15/22 01/15/22 Previous Rx's Medication Instructions Recorded Simvastatin [Zocor] 40 mg PO HS #60 tab 08/04/13 Sulfamethox-Tmp 800-160Mg [Bactrim 1 tab PO Q12HR 7 Days #14 tab 01/15/22 DS 800-160 mg] Allergies Allergy/AdvReac Type Severity Reaction Status Date / Time clonidine Allergy "ALMOST Verified 01/15/22 13:48 STOPPED MY HEART" levofloxacin [From Levaquin] Allergy SEIZURE Verified 01/15/22 13:48 Review of Systems ROS Statement: Those systems with pertinent positive or pertinent negative responses have been documented in the HPI. ROS Other: All systems not noted in ROS Statement are negative. 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 Past Anesthesia/Blood Transfusion Reactions: Postoperative Nausea & Vomiting (PONV) Additional Past Anesthesia/Blood Transfusion Reaction / Comment(s): could not walk for a couple hours after surgery with one surgery in 1990- (came in for surgery running a fever) Date of Last Stent Placement:: 08-03-13 Past Psychological History: Anxiety, Depression Smoking Status: Never smoker Past Alcohol Use History: None Reported Past Drug Use History: None Reported - Past Family History Mother Family Medical History: Cancer Additional Family Medical History / Comment(s): colon and breast CA General Exam Limitations: no limitations General appearance: alert, in no apparent distress Head exam: Present: atraumatic, normocephalic Eye exam: Present: normal appearance, PERRL ENT exam: Present: normal exam Neck exam: Present: normal inspection. Absent: tenderness, meningismus Respiratory exam: Present: normal lung sounds bilaterally. Absent: respiratory distress, wheezes Cardiovascular Exam: Present: regular rate, normal rhythm GI/Abdominal exam: Present: soft. Absent: distended, tenderness, guarding, rebound Extremities exam: Present: normal inspection, normal capillary refill. Absent: pedal edema Neurological exam: Present: alert, oriented X3, CN II-XII intact. Absent: motor sensory deficit Psychiatric exam: Present: normal affect, normal mood Skin exam: Present: warm, dry, intact. Absent: cyanosis, diaphoretic Course Vital Signs 01/15/22 01/15/22 10:47 12:51 Temperature 98.4 F Pulse Rate 74 78 Respiratory 20 18 Rate Blood Pressure 118/80 122/81 O2 Sat by Pulse 99 97 Oximetry Medical Decision Making - Medical Decision Making 66-year-old male with abdominal pain and rectal bleeding. Patient's well- appearing, stable vitals. Laboratory tests reveal stable hemoglobin, no significant abnormalities in lab testing. Imaging does reveal a distal colitis likely the cause of the patient's rectal bleeding. I discussed case with Dr. Moise who is familiar with the patient, will start antibiotics at this time with close outpatient follow-up. The patient's given strict return parameters. - Lab Data Result diagrams: 01/15/22 10:49 01/15/22 10:49 Lab Results 01/15/22 01/15/22 01/15/22 Range/Units 10:49 10:49 10:49 WBC 11.3 H (3.8-10.6) k/uL RBC 4.44 (4.30-5.90) m/uL Hgb 14.3 (13.0-17.5) gm/dL Hct 40.1 (39.0-53.0) % MCV 90.2 (80.0-100.0) fL MCH 32.3 (25.0-35.0) pg MCHC 35.8 (31.0-37.0) g/dL RDW 11.9 (11.5-15.5) % Plt Count 259 (150-450) k/uL MPV 7.2 Neutrophils % 76 % Lymphocytes % 15 % Monocytes % 6 % Eosinophils % 2 % Basophils % 1 % Neutrophils # 8.5 H (1.3-7.7) k/uL Lymphocytes # 1.7 (1.0-4.8) k/uL Monocytes # 0.7 (0-1.0) k/uL Eosinophils # 0.2 (0-0.7) k/uL Basophils # 0.1 (0-0.2) k/uL PT 10.7 (9.0-12.0) sec INR 1.0 (<1.2) APTT 22.8 (22.0-30.0) sec Sodium 136 L (137-145) mmol/L Potassium 3.8 (3.5-5.1) mmol/L Chloride 101 (98-107) mmol/L Carbon Dioxide 24 (22-30) mmol/L Anion Gap 11 mmol/L BUN 8 L (9-20) mg/dL Creatinine 0.68 (0.66-1.25) mg/dL Est GFR (CKD-EPI)AfAm >90 (>60 ml/min/1.73 sqM) Est GFR (CKD-EPI)NonAf >90 (>60 ml/min/1.73 sqM) Glucose 91 (74-99) mg/dL Calcium 8.7 (8.4-10.2) mg/dL Total Bilirubin 1.1 (0.2-1.3) mg/dL AST 28 (17-59) U/L ALT 28 (4-49) U/L Alkaline Phosphatase 70 (38-126) U/L Troponin I (0.000-0.034) ng/mL Total Protein 6.6 (6.3-8.2) g/dL Albumin 4.5 (3.5-5.0) g/dL 01/15/22 Range/Units 10:49 WBC (3.8-10.6) k/uL RBC (4.30-5.90) m/uL Hgb (13.0-17.5) gm/dL Hct (39.0-53.0) % MCV (80.0-100.0) fL MCH (25.0-35.0) pg MCHC (31.0-37.0) g/dL RDW (11.5-15.5) % Plt Count (150-450) k/uL MPV Neutrophils % % Lymphocytes % % Monocytes % % Eosinophils % % Basophils % % Neutrophils # (1.3-7.7) k/uL Lymphocytes # (1.0-4.8) k/uL Monocytes # (0-1.0) k/uL Eosinophils # (0-0.7) k/uL Basophils # (0-0.2) k/uL PT (9.0-12.0) sec INR (<1.2) APTT (22.0-30.0) sec Sodium (137-145) mmol/L Potassium (3.5-5.1) mmol/L Chloride (98-107) mmol/L Carbon Dioxide (22-30) mmol/L Anion Gap mmol/L BUN (9-20) mg/dL Creatinine (0.66-1.25) mg/dL Est GFR (CKD-EPI)AfAm (>60 ml/min/1.73 sqM) Est GFR (CKD-EPI)NonAf (>60 ml/min/1.73 sqM) Glucose (74-99) mg/dL Calcium (8.4-10.2) mg/dL Total Bilirubin (0.2-1.3) mg/dL AST (17-59) U/L ALT (4-49) U/L Alkaline Phosphatase (38-126) U/L Troponin I <0.012 (0.000-0.034) ng/mL Total Protein (6.3-8.2) g/dL Albumin (3.5-5.0) g/dL Disposition Clinical Impression: Colitis Disposition: HOME SELF-CARE Condition: Fair Instructions (If sedation given, give patient instructions): Gastrointestinal Bleeding (ED), Colitis (ED) Prescriptions: Sulfamethox-Tmp 800-160Mg [Bactrim DS 800-160 mg] 1 tab PO Q12HR 7 Days #14 tab Is patient prescribed a controlled substance at d/c from ED?: No Referrals: Marcos Wright MD [Primary Care Provider] - 1-2 days Kayla Greene MD [STAFF PHYSICIAN] - 1-2 days Time of Disposition: 14:14
[2022-01-15 12:55] VITALS: RESP 18
--- NOTE | 2022-01-15 13:36 | CT ---
EXAMINATION TYPE: CT abdomen pelvis w con DATE OF EXAM: 01/15/2022 COMPARISON: None HISTORY: Abdominal pain with Rectal bleeding and diarrhea CT DLP: 1570.1 mGycm CONTRAST: CT scan of the abdomen and pelvis is performed without Oral Contrast and with IV Contrast, patient in jected with 100 ml mL of Isovue 300. FINDINGS: LUNG BASES-: No visible nodule. No infiltrate. LIVER/GB: No calcified gallstones. No space occupying hepatic lesion. Biliary tree is of normal ca liber. PANCREAS: No inflammation. No distinct mass. SPLEEN: No splenic enlargement. No lesion seen. ADRENALS: No nodule. No thickening. KIDNEYS/BLADDER: No hydronephrosis. No nephrolithiasis. No distinct renal mass. Urinary bladder g rossly unremarkable. BOWEL: Normal appendix. Long segment wall thickening involving the ascending colon from the splenic f lexure through the distal descending colon. Correlate for nonspecific colitis such as infectious and inflammatory processes. The remainder of the colon is of normal caliber. No evidence for free air or abscess. GENITAL ORGANS: No gross abnormality. LYMPH NODES: No greater than 1cm abdominal or pelvic lymph nodes are appreciated. AORTA: No significant abnormality. OSSEOUS STRUCTURES: Postoperative changes right hip. OTHER: No significant additional abnormality is seen. IMPRESSION: 1. Nonspecific although likely infectious colitis of the descending colon. Correlate clinically.
[2022-01-15 14:32] VITALS: BP 133/76; PULSE 62; TEMP 98.6
== END 2022-01-15 14:32 | disposition home or self-care (01) ==
LOC: EC 10:35
DX: K52.9 Noninfective gastroenteritis and colitis, unspecified (principal); K21.9 Gastro-esophageal reflux disease without esophagitis; E78.5 Hyperlipidemia, unspecified; I10 Essential (primary) hypertension; I25.2 Old myocardial infarction; Z79.899 Other long term (current) drug therapy; Z88.8 Allergy status to other drugs, medicaments and biological substances; Z88.1 Allergy status to other antibiotic agents
CPT/HCPCS: 36415; 80053; 84484; 85025; 85610; 85730; 74177; 99285; Q9967; 99284

== ENCOUNTER 2022-04-19 07:18 | Day surgery (SDC) | payer BC ==
[2022-04-19] MEDS ORDERED: LACTATED RINGERS 1,000 ML IV SCH (07:29)
[2022-04-19] MEDS ORDERED: LIDOCAINE 1% (10MG/ML) FOR IV START INTRADERMA PRN (07:29)
[2022-04-19 07:54] VITALS: TEMP 98
[2022-04-19] MEDS ORDERED: fentaNYL (PF) 50 MCG/ML 2 ML AMP ONE (08:00)
[2022-04-19] MEDS ORDERED: PROPOFOL 10 MG/ML 20 ML VIAL IV ONE (08:00)
[2022-04-19] MEDS ORDERED: LIDOCAINE 2% INJ 20 MG/ML (2 ML VIAL) ONE (08:00)
--- NOTE | 2022-04-19 08:01 | P.GSHP ---
History of Present Illness H&P Date: 04/19/22 CHIEF COMPLAINT: Colon screen HISTORY OF PRESENT ILLNESS: The patient is a 66-year-old male who presents for colon screen. Lower endoscopy was offered for further evaluation and management. PAST MEDICAL HISTORY: Please see list. PAST SURGICAL HISTORY: Please see list. MEDICATIONS: Please see list. ALLERGIES: Please see list. SOCIAL HISTORY: No illicit drug use FAMILY HISTORY: No reports of Crohn disease or ulcerative colitis. REVIEW OF ORGAN SYSTEMS: CONSTITUTIONAL: No reports of fevers or chills. PHYSICAL EXAM: VITAL SIGNS: Stable GENERAL: Well-developed pleasant in no acute distress. HEENT: No scleral icterus. Extraocular movements grossly intact. Moist buccal mucosa. NECK: Supple without lymphadenopathy. CHEST: Unlabored respirations. Equal bilateral excursions. CARDIOVASCULAR: Regular rate and rhythm. Distal 2+ pulses. ABDOMEN: Soft, nontender, nondistended. MUSCULOSKELETAL: No clubbing, cyanosis, or edema. ASSESSMENT: 1. Colon screen. PLAN: 1. 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 rotator cuff left shoulder, colonoscopies Past Anesthesia/Blood Transfusion Reactions: Previous Problems w/ Anesthesia, Postoperative Nausea & Vomiting (PONV) Additional Past Anesthesia/Blood Transfusion Reaction / Comment(s): could not walk for a couple hours after surgery with one surgery in 1990- (came in for surgery running a fever) , "epinephrine cause racing heart", slow to wake up, "cranky", hx. small trachea Date of Last Stent Placement:: 08-03-13 Smoking Status: Never smoker - Past Family History Mother Family Medical History: Cancer Additional Family Medical History / Comment(s): colon and breast CA Medications and Allergies Home Medications Medication Instructions Recorded Confirmed Type Simvastatin [Zocor] 40 mg PO HS #60 tab 08/04/13 04/19/22 Rx lisinopriL [Zestril] 5 mg PO HS 12/01/18 04/19/22 History Aspirin [Adult Low Dose Aspirin EC] 162 mg PO DAILY 02/10/19 04/19/22 History Montelukast Sodium [Singulair] 10 mg PO HS 02/10/19 04/19/22 History Multivit-Min/FA/Lycopen/Lutein 1 tab PO DAILY 11/23/20 04/19/22 History [Centrum Silver Tablet] FLUoxetine HCL 20 mg PO DAILY 01/15/22 04/19/22 History Glucos Sul 2Kcl/MSM/Chond/C/Mn 1 cap PO DAILY 01/15/22 04/19/22 History [Glucosamine Chondroitin Cap] buPROPion XL [Wellbutrin XL] 300 mg PO DAILY 01/15/22 04/19/22 History Propranolol [Inderal] 20 mg PO DAILY 02/19/22 04/19/22 History Triamcinolone Acetonide [Nasacort] 1 spray EA NOSTRIL DIRECTED PRN 02/19/22 04/19/22 History Albuterol Inhaler [Ventolin Hfa 1 - 2 puff INHALATION Q6H PRN 04/17/22 04/19/22 History Inhaler] Cholecalciferol [Vitamin D3 (25 25 mcg PO DAILY 04/17/22 04/19/22 History Mcg = 1000 Iu)] Topiramate [Topamax] 25 mg PO BID 04/17/22 04/19/22 History Allergies Allergy/AdvReac Type Severity Reaction Status Date / Time clonidine Allergy Severe "ALMOST Verified 04/19/22 07:54 STOPPED MY HEART" levofloxacin [From Levaquin] Allergy Severe SEIZURE Verified 04/19/22 07:54 epinephrine Allergy Rapid Verified 04/19/22 07:54 Heart Rate dust,mold,trees Allergy Unknown Uncoded 04/19/22 07:54 Surgical - Exam Vital Signs Temp Pulse Resp BP Pulse Ox 98 F 62 16 125/74 96 04/19/22 07:52 04/19/22 07:52 04/19/22 07:52 04/19/22 07:52 04/19/22 07:52
[2022-04-19 08:10] LABS: Glucose,Whole Blood 93 mg/dL (70-110)
--- NOTE | 2022-04-19 08:39 | P.PCN ---
Date of Procedure: 04/19/22 Description of Procedure: PREOPERATIVE DIAGNOSIS: Personal history of colon polyps POSTOPERATIVE DIAGNOSIS: Diverticulosis, scattered. Internal/external hemorrhoids, grade 2 OPERATION: Colonoscopy to the cecum, ileocecal valve and appendiceal orifice. SURGEON: Kayla Greene MD. ANESTHESIA: MAC. INDICATIONS: The patient is a 66-year-old male who presents for colonoscopy screening. Last colonoscopy 5 years ago. Benefits and risks were described and informed consent was obtained. DESCRIPTION OF PROCEDURE: The patient had undergone Sutab prep. The patient had been brought into the operating room and laid in the left lateral decubitus position. After adequate intravenous sedation, the rectum was examined with 2% lidocaine jelly. External hemorrhoids were encountered. The rectal tone was within normal limits. No lesions were palpated in the rectal vault. An Olympus colonoscope was advanced until the cecum, ileocecal valve and appendiceal orifice were clearly viewed. The prep was good. Scattered diverticulosis was encountered. No colonic polyps were found. No evidence of focal colitis was found. Retroflexion of the scope demonstrated grade 2 internal hemorrhoids without active bleeding or inflammation. The colon was desufflated. The patient had tolerated the procedure well. Withdrawal time was over 6 minutes. FINDINGS: Aronchick preparation quality scale 2 (1-5) Internal hemorrhoids, grade 2 External prolapsed hemorrhoids, grade 2 No arteriovenous malformations. No adenomatous polyps. No focal colitis. RECOMMENDATIONS: Lower endoscopy in 5 years, 2027 Plan - Discharge Summary Discharge Rx Participant: No New Discharge Prescriptions: Continue Simvastatin [Zocor] 40 mg PO HS #60 tab lisinopriL [Zestril] 5 mg PO HS Aspirin [Adult Low Dose Aspirin EC] 162 mg PO DAILY Montelukast Sodium [Singulair] 10 mg PO HS Multivit-Min/FA/Lycopen/Lutein [Centrum Silver Tablet] 1 tab PO DAILY Glucos Sul 2Kcl/MSM/Chond/C/Mn [Glucosamine Chondroitin Cap] 1 cap PO DAILY buPROPion XL [Wellbutrin XL] 300 mg PO DAILY FLUoxetine HCL 20 mg PO DAILY Cholecalciferol [Vitamin D3 (25 Mcg = 1000 Iu)] 25 mcg PO DAILY Albuterol Inhaler [Ventolin Hfa Inhaler] 1 - 2 puff INHALATION Q6H PRN PRN Reason: Shortness Of Breath Topiramate [Topamax] 25 mg PO BID Propranolol [Inderal] 20 mg PO DAILY Triamcinolone Acetonide [Nasacort] 1 spray EA NOSTRIL DIRECTED PRN PRN Reason: Allergy Symptoms Discharge Medication List Simvastatin [Zocor] 40 mg PO HS #60 tab 08/04/13 [Rx] lisinopriL [Zestril] 5 mg PO HS 12/01/18 [History] Aspirin [Adult Low Dose Aspirin EC] 162 mg PO DAILY 02/10/19 [History] Montelukast Sodium [Singulair] 10 mg PO HS 02/10/19 [History] Multivit-Min/FA/Lycopen/Lutein [Centrum Silver Tablet] 1 tab PO DAILY 11/23/20 [History] FLUoxetine HCL 20 mg PO DAILY 01/15/22 [History] Glucos Sul 2Kcl/MSM/Chond/C/Mn [Glucosamine Chondroitin Cap] 1 cap PO DAILY 01/15/22 [History] buPROPion XL [Wellbutrin XL] 300 mg PO DAILY 01/15/22 [History] Propranolol [Inderal] 20 mg PO DAILY 02/19/22 [History] Triamcinolone Acetonide [Nasacort] 1 spray EA NOSTRIL DIRECTED PRN 02/19/22 [History] Albuterol Inhaler [Ventolin Hfa Inhaler] 1 - 2 puff INHALATION Q6H PRN 04/17/22 [History] Cholecalciferol [Vitamin D3 (25 Mcg = 1000 Iu)] 25 mcg PO DAILY 04/17/22 [History] Topiramate [Topamax] 25 mg PO BID 04/17/22 [History] Follow up Appointment(s)/Referral(s): Kayla Greene MD [STAFF PHYSICIAN] - 05/01/22 Patient Instructions/Handouts: Diverticulitis Diet (DC), Diverticulitis (IP) Activity/Diet/Wound Care/Special Instructions: Repeat colonoscopy 5 years, 2027 Discharge Disposition: HOME SELF-CARE
[2022-04-19 08:53] VITALS: BP 120/75; PULSE 48; RESP 18
== END 2022-04-19 09:37 | disposition home or self-care (01) ==
LOC: ORWHC2ENDO 07:18
PROVIDERS: ATTEND Surgery Plastic and Reconstructive Surgery
DX: Z12.11 Encounter for screening for malignant neoplasm of colon (principal); K64.4 Residual hemorrhoidal skin tags; K57.30 Diverticulosis of large intestine without perforation or abscess without bleeding; K64.1 Second degree hemorrhoids; Z86.010 Personal history of colon polyps; Z79.82 Long term (current) use of aspirin; Z79.899 Other long term (current) drug therapy; Z79.51 Long term (current) use of inhaled steroids; J45.909 Unspecified asthma, uncomplicated; Z86.73 Personal history of transient ischemic attack (TIA), and cerebral infarction without residual deficits; K21.9 Gastro-esophageal reflux disease without esophagitis; I10 Essential (primary) hypertension; I25.2 Old myocardial infarction; M19.90 Unspecified osteoarthritis, unspecified site; G40.909 Epilepsy, unspecified, not intractable, without status epilepticus; F95.2 Tourette's disorder; Z88.6 Allergy status to analgesic agent; Z88.8 Allergy status to other drugs, medicaments and biological substances; G47.30 Sleep apnea, unspecified; Z99.89 Dependence on other enabling machines and devices; G62.9 Polyneuropathy, unspecified; Z98.62 Peripheral vascular angioplasty status; Z95.5 Presence of coronary angioplasty implant and graft; Z98.890 Other specified postprocedural states; Z80.0 Family history of malignant neoplasm of digestive organs; Z80.3 Family history of malignant neoplasm of breast; Z88.1 Allergy status to other antibiotic agents
CPT/HCPCS: 45378; J3010; J2704; J2001

== ENCOUNTER → 2022-11-09 | Outpatient (CLI) | payer BC ==
--- NOTE | 2022-11-09 15:04 | CT ---
CT CHEST FOR PULMONARY EMBOLISM. EXAMINATION TYPE: CT angio chest DATE OF EXAM: 11/09/2022 INDICATION: Thoracic aortic aneurysm. CT DLP: 1017.7 mGycm, Automated exposure control for dose reduction was used. CONTRAST: Patient injected with 100ml mL of Isovue 370. COMPARISON: None TECHNIQUE: CT of the chest is performed on a spiral scan at 2 mm thick sections. Study is performed with intravenous contrast timed for evaluation of the aorta. This will limit additional portions of the evaluation. FINDINGS: Aorta the diaphragm measures 2.3 cm. Transverse aortic arch measures 2.5 cm. Aorta at the level of ma in pulmonary artery is 3.9 cm. Aorta at the aortic root is 3.3 cm. The main pulmonary artery the bifurcation 2.8 cm No mediastinal or hilar adenopathy enlarged by CT criteria is evident. Lung windows are clear. Limited CT section through the upper abdomen are unremarkable. IMPRESSIONS: 1. There is some fusiform prominence of the ascending thoracic aorta with an AP diameter of 3.9 cm. N o aneurysmal dilatation is evident.
[2022-11-09 20:03] LABS: Immunoglobulin A <65.0 mg/dL (60.0-350.0)
[2022-11-09 20:08] LABS: Immunoglobulin M <35.0 mg/dL (40.0-280.0)
[2022-11-09 21:34] LABS: Erythrocyte Sedimentation Rate 1 mm/Hr (0-20)
[2022-11-10 00:56] LABS: ALT 17 U/L (10-49); AST 22 U/L (14-35); Albumin 4.5 d/dL (3.8-4.9); Albumin/Globulin Ratio 2.81 Ratio (1.60-3.17); Alkaline Phosphatase 64 U/L (41-126); Blood Urea Nitrogen 12.2 mg/dL (9.0-27.0); Calcium 9.1 mg/dL (8.7-10.3); Carbon Dioxide 22.1 mmol/L (21.6-31.8); Chloride 106 mmol/L (96-109); Globulin 1.6 d/dL (1.6-3.3); Glucose 85 mg/dL (70-110); Potassium 3.7 mmol/L (3.5-5.5); Sodium 140 mmol/L (135-145); T4, Free (Free Thyroxine) 1.27 ng/dL (0.80-1.80); Total Bilirubin 0.5 mg/dL (0.3-1.2); Total Protein 6.1 d/dL (6.2-8.2)
[2022-11-10 05:28] LABS: Basophils # (A) 0.05 X 10*3/uL (0.00-0.10); Basophils % (A) 0.9 %; Eosinophils # (A) 0.23 X 10*3/uL (0.04-0.35); Eosinophils % (A) 4.2 %; HCT 35.8 % (39.6-50.0); HGB 12.4 d/dL (13.0-17.0); Lymphocytes # (A) 1.97 X 10*3/uL (0.90-5.00); Lymphocytes % (A) 35.9 %; MCH 31.5 pg (27.0-32.0); MCHC 34.6 d/dL (32.0-37.0); MCV 90.9 FL (80.0-97.0); Mean Platelet Volume 10.2 FL (9.5-12.2); Monocytes % (A) 9.1 %; NRBC Per 100 WBC 0 X 10*3/uL (0.00-0.01); Neutrophils % (A) 49.4 %; Platelet Count 245 X 10*3/uL (140-440); RBC 3.94 X 10*6/uL (4.40-5.60); RDW 11.6 % (11.5-14.5); WBC 5.48 X 10*3/uL (4.50-10.00)
== END | disposition home or self-care (01) ==
LOC: RADCTMAIN 13:40
PROVIDERS: ATTEND Family Medicine
DX: I71.20 Thoracic aortic aneurysm, without rupture, unspecified (principal)
CPT/HCPCS: 84439; 80053; 85652; 82607; 84443; 85025; 86592; 86618; 86038; 86334; 83036; 71275; 36415; Q9967

== ENCOUNTER → 2023-12-27 | Outpatient (CLI) | payer BC ==
[2023-12-27 20:26] LABS: Basophils # (A) 0.09 X 10*3/uL (0.00-0.10); Basophils % (A) 1.3 %; Eosinophils # (A) 0.45 X 10*3/uL (0.04-0.35); Eosinophils % (A) 6.7 %; HCT 38.4 % (39.6-50.0); HGB 13.3 g/dL (13.0-17.0); Lymphocytes # (A) 2.38 X 10*3/uL (0.90-5.00); Lymphocytes % (A) 35.3 %; MCH 31.7 pg (27.0-32.0); MCHC 34.6 g/dL (32.0-37.0); MCV 91.4 FL (80.0-97.0); Mean Platelet Volume 9.8 FL (9.5-12.2); Monocytes # (A) 0.58 X 10*3/uL (0.20-1.00); Monocytes % (A) 8.6 %; NRBC Per 100 WBC 0 X 10*3/uL (0.00-0.01); Neutrophils % (A) 47.5 %; Platelet Count 260 X 10*3/uL (140-440); RDW 11.9 % (11.5-14.5); WBC 6.74 X 10*3/uL (4.50-10.00)
[2023-12-27 20:35] LABS: Anion Gap 10.3 mmol/L (4.00-12.00); Carbon Dioxide 27.7 mmol/L (21.6-31.8); Potassium 4.9 mmol/L (3.5-5.5)
== END | disposition home or self-care (01) ==
LOC: LABPAT 14:25
PROVIDERS: ATTEND Orthopaedic Surgery
DX: Z01.818 Encounter for other preprocedural examination
CPT/HCPCS: 80051; 85025

== ENCOUNTER 2024-01-07 20:04 | Emergency (ER) | payer BC ==
[2024-01-07 20:23] VITALS: RESP 18
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
[2024-01-07] MEDS: ACETAMINOPHEN TAB 500 MG TAB PO STA (21:17)
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
[2024-01-07 21:59] VITALS: BP 144/78; PULSE 79; TEMP 98.1
== END 2024-01-07 21:44 | disposition home or self-care (01) ==
LOC: EC 20:04
CPT/HCPCS: 70450; 72125; 99284

== ENCOUNTER 2024-01-15 05:51 | Day surgery (SDC) | payer BC ==
[2024-01-10 10:04] VITALS: BMI 34.2
--- NOTE | 2024-01-14 21:35 | HP ---
HISTORY AND PHYSICAL DATE OF SURGERY: 01/15/2024. HISTORY OF PRESENT ILLNESS: Barrington De Dios is a 68-year-old gentleman seen with progressive right shoulder pain. We discussed options regarding treatment. He elected to proceed with right shoulder arthroscopy. Consent was obtained. Preoperative clearance was provided by Dr. Shiv Lynch. PAST MEDICAL HISTORY: Hypertension, hyperlipidemia, cardiovascular disease, gastroesophageal reflux disease. PAST SURGICAL HISTORY: Right hand surgery, sinus surgery. DAILY MEDICATIONS: 1. Aspirin. 2. Lisinopril. 3. Metoprolol. 4. Omeprazole. 5. Simvastatin. ALLERGIES: Levaquin, clonidine. SOCIAL HISTORY: Denies tobacco use. PHYSICAL EVALUATION OF THE RIGHT SHOULDER: Flexion is 110 degrees. Abduction is 100 degrees. External rotation is 10 degrees with pain and weakness. Tenderness along the anterolateral acromion, bicipital groove, along with the rotator cuff tendon, long head biceps tendon. Cross-body adduction sign is positive. Drop-arm sign is positive. Distal neurovascular exam is intact. IMAGING STUDIES: Radiographs of the right shoulder revealed a type 2 acromion along with severe acromioclavicular joint osteoarthritis and cystic changes of the greater tuberosity. MRI of right shoulder revealed rotator cuff tear, severe acromioclavicular joint osteoarthritis. IMPRESSION: 1. Right shoulder impingement with rotator cuff tear. 2. Right shoulder acromioclavicular joint osteoarthritis. 3. Right shoulder bicipital tendinitis. 4. Hypertension. 5. Hyperlipidemia. 6. Cardiovascular disease. PLAN: Right shoulder arthroscopy with subacromial decompression, arthroscopic rotator cuff repair, Shirley procedure, biceps tenodesis, and debridement. MMODL / IJN: [id number] /
[2024-01-15] MEDS: IV FLUID CONTINUATION 1,000 ML IV ONE (06:12)
[2024-01-15] MEDS: LACTATED RINGERS 1,000 ML IV SCH (06:50)
[2024-01-15] MEDS: DEXAMETHASONE SOD PHOSPHATE 4 MG/ML 1 ML VIAL IVP STA (06:51)
[2024-01-15] MEDS: ONDANSETRON 4 MG/2 ML VIAL IVP STA (06:53)
[2024-01-15] MEDS ORDERED: HYDROmorphone 0.5 MG/0.5 ML SYRINGE IVP PRN (07:00)
[2024-01-15] MEDS: MIDAZOLAM 2 MG/2 ML VIAL IV ONE (07:04)
[2024-01-15] MEDS: fentaNYL (PF) 50 MCG/ML 2 ML AMP IVP PRN (07:04)
--- NOTE | 2024-01-15 07:17 | P.ANPRN ---
Procedure Note - Anesthesia - Nerve Block Performed Right Interscalene Single Time Out Performed: Yes Date of Procedure: 01/15/24 Procedure Start Time: 07:04 Procedure Stop Time: 07:10 Location of Patient: PreOp Indication: Acute Post-Operative Pain, Requested by Surgeon Sedation Type: Sedate with meaningful contact maintained Preparation: Sterile Prep Position: Supine Needle Types: Pajunk Needle Gauge: 21 Ultrasound used to visualize needle placement: Yes Ultrasound used to observe medication spread: Yes Injectate: 0.5% Ropivacaine (see comment for volume) (25 ml + 4 mg D examethasone) Blood Aspirated: No Pain Paresthesia on Injection Noted: No Resistance on Injection: Normal Image Stored and Saved: Yes Events: Uneventful and Well Tolerated
[2024-01-15] MEDS ORDERED: DEXAMETHASONE SOD PHOSPHATE 4 MG/ML 1 ML VIAL ONE (07:22)
[2024-01-15] MEDS ORDERED: fentaNYL (PF) 50 MCG/ML 2 ML AMP ONE (07:22)
[2024-01-15] MEDS ORDERED: LIDOCAINE 1% INJ 10MG/ML (20 ML MDV) ONE (07:22)
[2024-01-15] MEDS ORDERED: ePHEDrine 50 MG/ML 1 ML VIAL ONE (07:22)
[2024-01-15] MEDS ORDERED: GLYCOPYRROLATE 0.2 MG/ML 2 ML VIAL ONE (07:22)
[2024-01-15] MEDS ORDERED: ROPIVACAINE 5 MG/ML 30 ML VIAL ONE (07:22)
[2024-01-15] MEDS ORDERED: SUCCINYLCHOLINE CHLORIDE 200 MG/10 ML VIAL IV ONE (07:22)
[2024-01-15] MEDS ORDERED: PROPOFOL 10 MG/ML 20 ML VIAL IV ONE (07:22)
[2024-01-15 09:00] VITALS: TEMP 97.1
--- NOTE | 2024-01-15 09:12 | P.OP ---
Date of Procedure: 01/15/24 Preoperative Diagnosis: Right shoulder impingement Postoperative Diagnosis: 1. Right shoulder rotator cuff tear 2. Right shoulder impingement 3. Right shoulder bicipital tendinitis/partial tear 4. Right shoulder acromioclavicular joint osteoarthritis 5. Right shoulder superficial superior labral tear Procedure(s) Performed: 1. Right shoulder arthroscopic rotator cuff repair 2. Right shoulder arthroscopic subacromial decompression 3. Right shoulder arthroscopic biceps tenodesis 4. Right shoulder arthroscopic Shirley procedure 5. Right shoulder arthroscopic debridement labral tear Implants: 1Arthrex 4.75 swivel lock anchor 1Arthrex 5.5 swivel lock anchor Anesthesia: GETA, regional (Interscalene block) Surgeon: Clinton L[employer] Teacher #1: Anthony Shay Estimated Blood Loss (ml): 10 Pathology: none sent Condition: stable Disposition: PACU Indications for Procedure: 68-year-old gentleman seen with progressive right shoulder pain. After having treatment options discussed, he elected to proceed with arthroscopy. Operative Findings: See description of procedure Description of Procedure: Patient underwent an interscalene block by department of anesthesia. The patient was then taken to the operative suite. The patient underwent a general anesthetic by the department of anesthesia. The patient was placed into a lateral position and secured. There was appropriate padding of the bony prominence. Right shoulder was then prepped and draped in normal sterile orthopedic fashion. We placed the extremity in 10 pounds of longitudinal traction. A posterior incision was now made for a posterior working portal site. The trocar and cannula were inserted into the glenohumeral joint. Arthroscopy was initiated. Spinal needle was now inserted anteriorly, to ascertain the anterior working portal site. An incision was now made in that area, a trocar was inserted followed by a probe. There was superficial tearing of the superior labrum. There were grade I chondromalacia changes glenohumeral joint without tears. There was some partial tearing and hyperemia long head biceps tendon consistent with bicipital tendinitis. I debrided the superficial labral tear. I decided to proceed with arthroscopic biceps tenodesis. A cannula was now introduced through the anterior portal site. I passed a loop and tack type stitch to the biceps tendon. I released the biceps from the superior labral anchor. With the assistance of a Ronaldo WILDE punch hole at the interval for insertion of an anchor. The suture line was passed through the eyelet of an Arthrex 4.75 swivel lock anchor. I placed the eyelet into our preplanned hole and held in position while Ronaldo WILDE tensioned the suture and deployed the anchor with good fixation noted. The residual suture limb was clipped. We had a stable appearing biceps tenodesis. Instruments were now removed from the glenohumeral joint. Utilizing the posterior working portal site, the trocar and cannula were inserted into the subacromial space. Arthroscopy initiated. I made an incision 2 fingerbreadths lateral to the acromion. I introduced my trocar followed by my ArthroCare ablator. I now began ablating thick subacromial bursal tissue, which exposed the undersurface of the anterior acromion. There was diminished subacromial space. There was a very prominent anterior acromion. A motorized bur was introduced and a subacromial decompression was performed. I also excised some osteophytes off the inferior aspect of the distal clavicle. The AC joint was visualized and noted to be fairly arthritic. The motorized bur was introduced in the anterior portal site and a Shirley procedure was performed without difficulty removing 8 mm of bone off the distal clavicle, decompressing the AC joint nicely. I turned my attention to the rotator cuff. There was a 1 cm rotator cuff tear. I debrided the margins getting down to stable tendon tissue. I abraded the footprint with a motorized bur. I passed 2 everted mattress sutures through good bites of rotator cuff tendon. I partial at the area of the footprint for insertion of an anchor. With the assistance of Ronaldo WILDE we passed the sutures through the eyelet of an Arthrex 5.5 swivel lock anchor. I placed the anchor/eyelet into our preplanned hole and held in position while Ronaldo WILDE tensioned the suture limbs and deployed the anchor with good fixation noted. All residual suture limbs were now clipped. We had good compression of the tendon along the entire footprint. Instruments now removed from the portal sites. All portal sites were approximated with nylon suture. Sterile dressings were applied followed by a shoulder sling. Anthony WILDE assisted in this complex case. The patient was awakened, transferred to a bed, and taken to recovery in stable condition.
[2024-01-15 09:45] VITALS: RESP 20
[2024-01-15 11:11] VITALS: BP 110/74; PULSE 58
== END 2024-01-15 11:00 | disposition home or self-care (01) ==
LOC: OR 05:51
PROVIDERS: ATTEND Orthopaedic Surgery
CPT/HCPCS: 64415

== ENCOUNTER → 2024-06-08 | Outpatient (CLI) | payer BC ==
[2024-06-08 15:12] LABS: HCT 41.7 % (39.6-50.0); HGB 14.4 g/dL (13.0-17.0); MCH 31.9 pg (27.0-32.0); MCHC 34.5 g/dL (32.0-37.0); MCV 92.5 FL (80.0-97.0); Mean Platelet Volume 9.9 FL (9.5-12.2); NRBC Per 100 WBC 0 X 10*3/uL (0.00-0.01); Platelet Count 254 X 10*3/uL (140-440); RBC 4.51 X 10*6/uL (4.40-5.60); RDW 11.8 % (11.5-14.5)
[2024-06-08 15:17] LABS: Blood Urea Nitrogen 7.4 mg/dL (9.0-27.0)
[2024-06-08 15:18] LABS: Carbon Dioxide 27.5 mmol/L (21.6-31.8); Chloride 102 mmol/L (96-109); Potassium 4.5 mmol/L (3.5-5.5); Sodium 139 mmol/L (135-145)
== END | disposition home or self-care (01) ==
LOC: LABPAT 10:30
PROVIDERS: ATTEND Internal Medicine Interventional Cardiology
DX: Z01.812 Encounter for preprocedural laboratory examination (principal); I25.118 Atherosclerotic heart disease of native coronary artery with other forms of angina pectoris
CPT/HCPCS: 36415; 80051; 82565; 84520; 85027

== ENCOUNTER 2024-06-10 07:37 | Day surgery (SDC) | payer BC ==
[2024-06-08 14:14] VITALS: BMI 34.2
[~2024-06-10 07:37] MED LIST changes: +ALPRAZolam 0.25 MG TAB PO PRN; +ALPRAZolam 0.5 MG TAB PO PRN; -DEXAMETHASONE SOD PHOSPHATE 4 MG/ML 1 ML VIAL IV ONE; -LACTATED RINGERS 1,000 ML IV SCH; -MIDAZOLAM 2 MG/2 ML VIAL IV PRN; +NITROGLYCERIN SL TABS 0.4 MG TAB SUBLINGUAL PRN; -ONDANSETRON 4 MG/2 ML VIAL IVP ONE
[2024-06-10] MEDS: IV FLUID CONTINUATION 1,000 ML IV ONE ×2 (08:00→09:04)
[2024-06-10 08:15] VITALS: RESP 16; TEMP 98.5
[2024-06-10] MEDS: SODIUM CHLORIDE 0.9% 1,000 ML in EMPTY BAG 1 BAG IV SCH (08:16)
[2024-06-10] MEDS: MIDAZOLAM 2 MG/2 ML VIAL IVP ONE (09:02)
[2024-06-10] MEDS: LIDOCAINE 1% INJ 10MG/ML (30 ML VIAL-PF) SQ ONE (09:03)
[2024-06-10] MEDS: VERAPAMIL SYRINGE (5 MG/10 ML) INTRAARTER ONE (09:04)
[2024-06-10] MEDS: HEPARIN SODIUM 1,000 UN/ML (10ML VL) IVP ONE (09:06)
[2024-06-10] MEDS: HEPARIN SODIUM,PORCINE 10,000 UNIT in SODIUM CHLORIDE 0.9% 1,000 ML IRRIGATION PRN (09:20)
[2024-06-10] MEDS: HEPARIN SODIUM,PORCINE (1 ML) 2,500 UNIT in SODIUM CHLORIDE 0.9% 250 ML IRRIGATION PRN (09:20)
[2024-06-10] MEDS: IOPAMIDOL-370 100ML BTL INJ ONE (09:23)
[2024-06-10] MEDS: SODIUM CHLORIDE 0.9% 1,000 ML IV SCH (09:30)
--- NOTE | 2024-06-10 10:19 | CC ---
CARDIAC CATHETERIZATION REPORT PROCEDURES PERFORMED: Left heart catheterization and coronary angiography. PERFORMED BY: Dr. Shiv Lynch. Moderate conscious sedation time was 21 minutes. The patient was administered Versed. Oxygen saturation, hemodynamics, and EKG were monitored closely. CLINICAL INFORMATION: Mr. Barrington De Dios is a 68-year-old gentleman with a history of known CAD, prior inferior [place] with total occlusion of the RCA, but the opacified segment prior to the total occlusion was stented in 2013. He has a separate conus branch as well. There were some collaterals from the left to right at that time. The stented area of the RCA developed dissection and the entire vessel from the ostium was stented. He has been having symptoms of angina, was therefore advised cardiac catheterization. Left system did not have significant disease at that time. PROCEDURE NOTE: Under local anesthesia and strict aseptic precautions, a 6-Slovak introducer was placed in the right radial artery. Using JL3.5 and JR4 catheters, I performed coronary angiography and the same right catheter was used to check LV pressures, but LV-gram was not performed. Following the procedure, the sheath was taken out and TR band applied as per protocol with saturation of the fingers of the right hand of 95%. The patient tolerated the procedure well without complications. CARDIAC CATHETERIZATION FINDINGS: The left ventricular end-diastolic pressure was 6 mmHg without any gradient across the aortic valve. CORONARY ANGIOGRAPHY FINDINGS: Right coronary artery: This vessel appears to have a separate conus branch that is free of significant disease. Right coronary itself is diffusely diseased and previously stented area has developed in-stent restenoses of about nearly 70% to 80%. The vessel opacifies slowly on antegrade injection. There is not much antegrade flow beyond the stented segment. There appears to be competitive flow. The conus branch is free of significant disease. RCA was previously totally occluded with collaterals from the left and the opacified segment was stented. Left main coronary artery: Short patent vessel immediately bifurcates into LAD and circumflex. No significant disease. Left anterior descending coronary artery: Good caliber vessel extends along the anterior wall. No significant disease, gives off septal and diagonal branches. The septal branches provide collaterals to the distal RCA. No significant disease in the LAD system. Left posterior circumflex coronary artery: This is a nondominant vessel, provides collaterals to the RCA. Midportion has about a 35% narrowing, eccentric in nature, relatively small caliber vessel. The RCA that is opacified appears to be a fairly decent caliber and both branches of the RCA are well opacified and are free of significant disease. Collateral circulation: There is a rich network of collaterals from the septal branch of LAD as well as from the circumflex branch opacifying the distal branches of RCA. FINAL IMPRESSION: This patient has normal filling pressures, no gradient, diffuse disease in-stent restenosis in the RCA. RCA distally is totally occluded. The left system is free of significant disease with 35% to 40% mid circumflex disease. Left main and LAD are free of significant disease. There is a rich network of collaterals from the left system opacifying the 2 branches of RCA. RECOMMENDATIONS: I am recommending continued medical therapy with risk factor modification. Findings were reviewed with the patient as well as his . He will take Inderal LA 60 mg for his tremors and for the CAD, but will not take the additional 20 mg. He will be discharged later on today and I will see him in the office within 7 to 10 days. MMODL / IJN: [id number] /
[2024-06-10 12:50] VITALS: PULSE 50
[2024-06-10 12:52] VITALS: BP 113/59
[2024-06-10] MEDS: ATORVASTATIN 80 MG TAB PO STA (12:56)
[2024-06-10] MEDS: ASPIRIN 325 MG TAB PO STA (12:56)
[2024-06-10] MEDS: ACETAMINOPHEN TAB 325 MG TAB PO STA (15:12)
== END 2024-06-10 16:01 | disposition home or self-care (01) ==
LOC: CATHCVL 07:37
PROVIDERS: ATTEND Internal Medicine Interventional Cardiology
DX: I25.119 Atherosclerotic heart disease of native coronary artery with unspecified angina pectoris (principal); I25.82 Chronic total occlusion of coronary artery; I25.2 Old myocardial infarction; Z95.5 Presence of coronary angioplasty implant and graft; I10 Essential (primary) hypertension; E78.5 Hyperlipidemia, unspecified; G47.30 Sleep apnea, unspecified; E66.9 Obesity, unspecified; Z79.82 Long term (current) use of aspirin; Z79.51 Long term (current) use of inhaled steroids
CPT/HCPCS: 93458; J2250; J1644 ×3; J2003; Q9967